=== PATIENT | female | born 1970 | race African-American/Black ===

== ENCOUNTER 2017-01-27 14:40 | Emergency (ER) | payer OTHER ==
[2017-01-27 14:56] LABS: URINE SOURCE CLEAN CATCH
[2017-01-27 15:10] LABS: URINE APPEARANCE CLEAR; URINE BILIRUBIN NEG (NEG); URINE BLOOD NEG (NEG); URINE COLOR YELLOW; URINE GLUCOSE NEG (NEG); URINE KETONE TRACE (NEG); URINE LEUKOCYTE ESTERASE NEG (NEG); URINE NITRATE NEG (NEG); URINE PH 5.5 (5-8); URINE PROTEIN TRACE (NEG); URINE SPECIFIC GRAVITY 1.029 (1.003-1.035)
[2017-01-27 15:15] LABS: CULTURE INDICATED? NO
[2017-01-29 23:05] LABS: CHLAMYDIA TRACH Not Detected (Not Detected); N GONOR Not Detected (Not Detected)
== END 2017-01-27 16:55 | disposition home or self-care (01) ==
LOC: CFTX 14:40
PROVIDERS: Nurse Practitioner
DX: N89.8 Other specified noninflammatory disorders of vagina (principal); E11.9 Type 2 diabetes mellitus without complications; I10 Essential (primary) hypertension
CPT/HCPCS: 81003; 84703; 87491; 87591; 87808; 87905; 96372; 99284; J0696

== ENCOUNTER 2017-03-14 15:20 | Emergency (ER) | payer OTHER ==
--- NOTE | ~2017-03-14 | US85 ---
[facility] A Service of [facility] RADIOLOGY TEXT RESULTS PATIENT: GINETTE DHILLON LOCATION: [facility] : 70 UNIT #: [id number] AGE: [address]: Salbador Rogers MD SEX: F ORDER DR: [id number] [facility] [address] [place], [place] [address] [id number] E MR#: [id number] Acc #: [id number] NAME: GINETTE DHILLON : 1970 SEX: F STUDY DATE/TIME: 03/14/2017 16:13 UNIT: [facility] ROOM: STUDY DESCRIPTION: Daily [employer] Stdy Attending Physician: Salbador Rogers M.D. Ordering Physician: Salbador Rogers M.D. MEDICAL IMAGING REPORT This report is preliminary unless electronic signature is present EXAM Left lower extremity venous duplex 03/14/2017 HISTORY Left lower extremity pain for 3 days. Evaluate for deep vein thrombosis. TECHNIQUE Venous ultrasound examination of the left lower extremity was performed using grayscale, spectral Doppler and color flow Doppler imaging. FINDINGS The examination is negative. There is no evidence of left lower extremity deep venous thrombus from the groin to the lower calf. Visualized greater saphenous vein is also patent. IMPRESSION Negative examination. No evidence of left lower extremity deep venous thrombosis. Dictated by... Kwasi Peguero M.D. THIS IS AN ELECTRONICALLY VERIFIED REPORT Kwasi Peguero M.D. at 03/17/2017 12:47 PM KRT/pcl TD: 03/14/2017 23:44 JOB #: [id number] MEDICAL IMAGING REPORT Page 1 of 1 COPY
== END 2017-03-14 17:34 | disposition home or self-care (01) ==
LOC: CED 15:20
DX: T78.3XXA Angioneurotic edema, initial encounter (principal); T46.4X5A Adverse effect of angiotensin-converting-enzyme inhibitors, initial encounter; M79.605 Pain in left leg; E11.9 Type 2 diabetes mellitus without complications; I10 Essential (primary) hypertension; F17.200 Nicotine dependence, unspecified, uncomplicated; Y92.9 Unspecified place or not applicable
CPT/HCPCS: 93971; 99284

== ENCOUNTER 2017-06-16 01:19 | Emergency (ER) | payer OTHER ==
[~2017-06-16] VITALS: Ht 167.6 cm; Wt 68.0 kg
== END 2017-06-16 03:24 | disposition home or self-care (01) ==
LOC: CED 01:19
DX: L03.313 Cellulitis of chest wall (principal); L03.012 Cellulitis of left finger; H60.11 Cellulitis of right external ear; L03.211 Cellulitis of face; L03.032 Cellulitis of left toe; E11.9 Type 2 diabetes mellitus without complications; F17.210 Nicotine dependence, cigarettes, uncomplicated
CPT/HCPCS: 99283

== ENCOUNTER 2017-06-20 22:39 | Emergency (ER) | payer OTHER ==
[~2017-06-20] VITALS: Ht 165.1 cm; Wt 77.1 kg
== END 2017-06-21 00:33 | disposition home or self-care (01) ==
LOC: CED 22:39
DX: L03.011 Cellulitis of right finger (principal); E11.9 Type 2 diabetes mellitus without complications; I10 Essential (primary) hypertension; G40.909 Epilepsy, unspecified, not intractable, without status epilepticus; F17.210 Nicotine dependence, cigarettes, uncomplicated
CPT/HCPCS: 10060; 96372; 99283; J1885